=== PATIENT | female | born 1990 | race Caucasian/White ===

== ENCOUNTER → 2017-10-04 | Outpatient (CLI) | payer BC ==
[~2017-10-04] MED LIST: BCPILLS PO; CYAN100074 SC; INSPMPHMLG; PREG1CAP28 PO; ROPI1TAB PO; TOPI100T45 PO
== END | disposition home or self-care (01) ==
LOC: C.PAPS 12:04
PROVIDERS: ATTEND Obstetrics & Gynecology
DX: Z01.419 Encounter for gynecological examination (general) (routine) without abnormal findings (principal)

== ENCOUNTER 2017-10-18 20:18 | Emergency (ER) | payer BC ==
[~2017-10-18] VITALS: Ht 152.4 cm; Wt 64.3 kg
[2017-10-18 20:42] VITALS: TEMP 36.8; Ht 152.4 cm; Wt 64.3 kg
--- NOTE | 2017-10-18 21:17 | EMERGENCY ROOM VISIT NOTE ---
History Report prepared by Arnold: Toribio Toth Under the Supervision of: Dr. Ori Jones M.D. First contact with patient: 21:03 Chief Complaint: ABDOMINAL PAIN Stated Complaint: POSSIBLE APPENDIX PER [facility] History of Present Illness The patient is a 27 year old diabetic female who presents to the Emergency Room with complaints of persistent abdominal pain that started upon waking today. She states that she has not been feeling well for 2 weeks, with bad fatigue and increased frequency of urination. The patient says that she could not get out of bed this morning with bad low back pain that bilaterally wraps around into her abdomen. She notes that she has been very nauseous today, and has not been able to eat due to the nausea. The patient says that she has not vomited. She notes that she went to [employer] prior to arrival today, and had a negative flu and urine. She states that she was sent here for a possible appendix. The patient denies any pain or burning with urination, vaginal bleeding or discharge , leg pain, or blood in her urine. She also denies any recent injuries to her back, or chance of . The patient states that she had DKA years ago when she was diagnosed with diabetes, and gets neuropathy in her feet. She has a history of a cholecystectomy. Source of History: patient, spouse/significant other Onset: Upon waking today Position: abdomen Quality: other (wraps around from back) Timing: other (persistent) Associated Symptoms: + nausea, + back pain, + urinary symptoms (increased frequency, denies burning or painful urination, denies blood), + fatigue, No vomiting Note: Associated symptoms: Denies vaginal bleeding or discharge, or leg pain. Review of Systems See HPI for pertinent positives & negatives. A total of 10 systems reviewed and were otherwise negative. Past Medical & Surgical Medical Problems: (1) Diabetes Surgical Problems: (1) History of cholecystectomy Old medical records were reviewed. Nurse's notes were reviewed and I agree with. Family History FH: factor V Leiden mutation Social History Smoking Status: Never Smoker Marital Status: Housing Status: lives with family Occupation Status: [employer] student Current/Historical Medications Scheduled Control Pills ( Control Pills), 1 TAB PO HS Cyanocobalamin (Vitamin Deficiency Inject), 1,000 MCG SC WK Insulin Human Lispro (Insulin Humalog Pump ), 1 EA N/A UD Pregabalin (Lyrica), 75 MG PO QAM Pregabalin (Lyrica), 150 MG PO HS Ropinirole (Requip), 1 MG PO HS Topiramate (Topamax), 100 MG PO AMHS Allergies Coded Allergies: Albuterol (Verified Allergy, Unknown, SHORTNESS OF BREATH, 10/18/17) Physical Exam Vital Signs Date Time Temp Pulse Resp B/P (MAP) Pulse Ox O2 Delivery O2 Flow Rate FiO2 10/19/17 00:44 81 18 95/67 100 10/18/17 23:18 84 18 107/68 100 Room Air 10/18/17 20:42 36.8 90 20 135/88 100 Room Air Physical Exam General: Non-ill appearing young female in no acute distress. HEENT: Normal cephalic atraumatic. Pupils are equal round and reactive to light. Extraocular movements are intact. Oropharynx is pink with moist mucous membranes. No swelling of the mouth lips or tongue. Neck: Supple with a midline trachea. No meningeal signs or stiffness, no JVD or bruits. No Stridor. Chest: Clear to auscultation bilaterally. No wheezes or rhonchi. No increased work of breathing. Heart: regular rate and rhythm. Abdomen: Mildly tender in central lower abdomen and right flank. Soft, nondistended without rebound guarding or rigidity. Intact insulin pump without redness. Extremities: No cyanosis clubbing or edema. No calf tenderness or assymetry Spine/Back. Non tender to palpation. No CVA tenderness Skin: Good turgor without rashes. Neurologic exam: Cranial nerves two through 12 are intact. Motor and sensation are intact and symmetrical throughout. Medical Decision & Procedures ER Provider Diagnostic Interpretation: CT results as stated below per my review and radiologist interpretation: CT ABDOMEN & PELVIS: Normal appendix. No GI or urinary tract obstruction. Cholecystectomy. Radiologist: Rangel Sánchez MD Laboratory Results 10/18/17 21:40 Red Blood Count 4.70, Mean Corpuscular Volume 87.7, Mean Corpuscular Hemoglobin 30.2, Mean Corpuscular Hemoglobin Concent 34.5, Mean Platelet Volume 10.1, Neutrophils (%) (Auto) 50.6, Lymphocytes (%) (Auto) 40.7, Monocytes (%) (Auto) 6.1, Eosinophils (%) (Auto) 2.1, Basophils (%) (Auto) 0.3, Neutrophils # (Auto) 4.58, Lymphocytes # (Auto) 3.69, Monocytes # (Auto) 0.55, Eosinophils # (Auto) 0.19, Basophils # (Auto) 0.03 10/18/17 21:40 Test 10/18/17 21:40 10/18/17 21:41 10/18/17 21:45 White Blood Count 9.06 K/uL (4.8-10.8) Red Blood Count 4.70 M/uL (4.2-5.4) Hemoglobin 14.2 g/dL (12.0-16.0) Hematocrit 41.2 % (37-47) Mean Corpuscular Volume 87.7 fL (80-100) Mean Corpuscular Hemoglobin 30.2 pg (25-34) Mean Corpuscular Hemoglobin Concent 34.5 g/dl (32-36) Platelet Count 227 K/uL (130-400) Mean Platelet Volume 10.1 fL (7.4-10.4) Neutrophils (%) (Auto) 50.6 % Lymphocytes (%) (Auto) 40.7 % Monocytes (%) (Auto) 6.1 % Eosinophils (%) (Auto) 2.1 % Basophils (%) (Auto) 0.3 % Neutrophils # (Auto) 4.58 K/uL (1.4-6.5) Lymphocytes # (Auto) 3.69 K/uL (1.2-3.4) Monocytes # (Auto) 0.55 K/uL (0.11-0.59) Eosinophils # (Auto) 0.19 K/uL (0-0.5) Basophils # (Auto) 0.03 K/uL (0-0.2) RDW Standard Deviation 41.7 fL (36.4-46.3) RDW Coefficient of Variation 12.9 % (11.5-14.5) Immature Granulocyte % (Auto) 0.2 % Immature Granulocyte # (Auto) 0.02 K/uL (0.00-0.02) Anion Gap 7.0 mmol/L (3-11) Est Creatinine Clear Calc Drug Dose 86.0 ml/min Estimated GFR () 112.8 Estimated GFR (Non- 97.3 BUN/Creatinine Ratio 10.6 (10-20) Calcium Level 8.6 mg/dl (8.5-10.1) Total Bilirubin 0.4 mg/dl (0.2-1) Direct Bilirubin < 0.1 mg/dl (0-0.2) Aspartate Amino Transf (AST/SGOT) 15 U/L (15-37) Alanine Aminotransferase (ALT/SGPT) 31 U/L (12-78) Alkaline Phosphatase 38 U/L (45-117) Total Creatine Kinase 61 U/L (26-192) Creatine Kinase MB < 0.5 ng/ml (0.5-3.6) Creatine Kinase MB Ratio (0-3.0) Total Protein 7.1 gm/dl (6.4-8.2) Albumin 3.6 gm/dl (3.4-5.0) Lipase 99 U/L (73-393) Bedside Glucose 139 mg/dl (70-90) Urine Color YELLOW Urine Appearance CLEAR (CLEAR) Urine pH 5.5 (4.5-7.5) Urine Specific [place] 1.023 (1.000-1.030) Urine Protein NEG (NEG) Urine Glucose (UA) NEG (NEG) Urine Ketones NEG (NEG) Urine Occult Blood NEG (NEG) Urine Nitrite NEG (NEG) Urine Bilirubin NEG (NEG) Urine Urobilinogen NEG (NEG) Urine Leukocyte Esterase TRACE (NEG) Urine WBC (Auto) 5-10 /hpf (0-5) Urine RBC (Auto) 5-10 /hpf (0-4) Urine Hyaline Casts (Auto) 1-5 /lpf (0-5) Urine Epithelial Cells (Auto) >30 /lpf (0-5) Urine Bacteria (Auto) NEG (NEG) Laboratory studies as stated above per my review. Medications Administered Medications (Trade) Dose Ordered Sig/Noam Route Start Time Stop Time Status Last Admin Dose Admin Sodium Chloride 1,000 ml @ 999 mls/hr Q1H1M STAT IV 10/18/17 21:20 10/18/17 22:20 DC 10/18/17 21:45 999 MLS/HR Ondansetron HCl (Zofran Inj) 4 mg NOW STAT IV 10/18/17 21:20 10/18/17 21:23 DC 10/18/17 21:45 4 MG Ketorolac Tromethamine (Toradol Inj) 30 mg NOW STAT IV 10/18/17 21:20 10/18/17 21:23 DC 10/18/17 21:46 30 MG ED Course 2108: Past medical records reviewed. The patient was evaluated in room C10, and a complete history and physical examination were performed. 2119: Ordered Toradol Inj 30 mg IV, Zofran Inj 4 mg IV, NSS 1000 ml @ 150 mls/ hr IV, NSS 1000 ml @ 999 mls/hr IV. 2316: I reevaluated the patient and she just got back from CT. 0030: Upon reevaluation, the patient is resting. I discussed the results and treatment plan with her. She verbalized agreement of the treatment plan. The patient was discharged home. Medical Decision Differentials include appendicitis, colitis, pancreatitis, liver disease, electrolyte or metabolic abnormality, diabetic emergency. This patient comes in as described above. She is a type I diabetic. She was seen at [facility] and sent to ER for possible appendicitis. She's had some lower abdominal pain more centrally and also some right-sided back pain . She has had some constipation. She has baseline neuropathy in her legs but no new numbness or weakness and no incontinence. No numbness in her buttocks. She has had no fever or chills and has a normal white count here. IV access established and blood work was obtained. She's had no significant anemic. Her urine was negative. Urinalysis does not suggest UTI with a backup culture pending. She's had no acute electrolyte or metabolic abnormalities. Her blood sugar was in the 150s and she's had nothing to suggest DKA. CAT scan of her abdomen is unremarkable and she has no acute findings. At this point, I cannot give her definite etiology for her symptoms but there is nothing to suggest acute infectious or surgical process at this point and I recommended she use ibuprofen for pain. She says that she has been constipated and this may be playing a role here as well. She did check her blood sugar frequently and return if: increasing pain, worsening of symptoms, fever or chills, any new problems or concerns. She was happy with plan and discharged to home. Medication Reconcilliation Current Medication List: was personally reviewed by me Blood Pressure Screening Patient's blood pressure: Normal blood pressure Impression Primary Impression: Right flank pain Additional Impression: Lower abdominal pain Scribe Attestation The scribe's documentation has been prepared under my direction and personally reviewed by me in its entirety. I confirm that the note above accurately reflects all work, treatment, procedures, and medical decision making performed by me. Departure Information Dispostion Home / Self-Care Referrals Saravanan Acevedo DO (PCP) Patient Instructions My [facility] Additional Instructions Rest Return if: Worsening of symptoms, increasing pain or problems, fever or chills, any new problems or concerns Follow-up with your doctor on Saturday for recheck Problem Qualifiers
[2017-10-18] MEDS ORDERED: ONDANSETRON INJ 2 MG/ML 2 ML VIAL IV STA (21:20)
[2017-10-18] MEDS ORDERED: KETOROLAC TROMETHAMINE 30 MG/ML VIAL IV STA (21:20)
[2017-10-18] MEDS ORDERED: SODIUM CHLORIDE 0.9% 1000ML 1,000 ML IV STA (21:20)
[2017-10-18] MEDS ORDERED: SODIUM CHLORIDE 0.9% 1000ML 1,000 ML IV ONE (21:20)
[2017-10-18] MEDS ORDERED: TOPI100T45 PO (21:53)
[2017-10-18] MEDS ORDERED: PREG1CAP28 PO ×2 (21:53)
[2017-10-18] MEDS ORDERED: INSPMPHMLG (21:53)
[2017-10-18] MEDS ORDERED: CYAN100074 SC (21:53)
[2017-10-18] MEDS ORDERED: ROPI1TAB PO (21:55)
[2017-10-18] MEDS ORDERED: BCPILLS PO (21:55)
[2017-10-18 22:00] LABS: BASO % 0.3 %; BASO ABS # 0.03 K/uL (0-0.2); COMPLETE YES; EOS % 2.1 %; HEMATOCRIT 41.2 % (37-47); IG% 0.2 %; LYMPH % 40.7 %; LYMPH ABS # 3.69 K/uL (1.2-3.4); MEAN CELL VOLUME 87.7 fL (80-100); MEAN CORPUSCULAR HEMOGLOBIN 30.2 pg (25-34); MEAN CORPUSCULAR HGB CONC 34.5 g/dl (32-36); MEAN PLATELET VOLUME 10.1 fL (7.4-10.4); MONO % 6.1 %; NEUT % 50.6 %; PLATELET COUNT 227 K/uL (130-400); WHITE BLOOD COUNT 9.06 K/uL (4.8-10.8)
[2017-10-18 22:05] LABS: URINE APPEARANCE CLEAR (CLEAR); URINE BILIRUBIN NEG (NEG); URINE COLOR YELLOW; URINE EPITHELIAL CELL AUTO >30 /lpf (0-5); URINE NITRITE NEG (NEG); URINE PH 5.5 (4.5-7.5); URINE SPECIFIC GRAVITY 1.023 (1.000-1.030); UROBILINOGEN NEG (NEG)
[2017-10-18 22:06] LABS: MANUAL MICROSCOPIC REQUIRED? NO; REVIEW REQ? NO
[2017-10-18 22:20] LABS: ALT/SGPT 31 U/L (12-78); BLOOD UREA NITROGEN 9 mg/dl (7-18); BUN/CREATININE RATIO 10.6 (10-20); CALCIUM 8.6 mg/dl (8.5-10.1); CARBON DIOXIDE 23 mmol/L (21-32); CHLORIDE 111 mmol/L (98-107); CREATININE 0.83 mg/dl (0.60-1.20); GLUCOSE 152 mg/dl (70-99); POTASSIUM 3.5 mmol/L (3.5-5.1); SODIUM 141 mmol/L (136-145)
[2017-10-18 22:25] LABS: ALKALINE PHOSPHATASE 38 U/L (45-117); AST/SGOT 15 U/L (15-37)
[2017-10-18] MEDS ORDERED: OPTIRAY 320 IV PRN (22:30)
[2017-10-19 00:44] VITALS: BP 95/67; PULSE 81; O2SAT 100
--- NOTE | 2017-10-19 07:34 | DIAGNOSTIC IMAGING REPORT ---
CT OF THE ABDOMEN AND PELVIS WITH CONTRAST CLINICAL HISTORY: Lower abdominal pain. Evaluate for acute appendicitis. COMPARISON STUDY: None. TECHNIQUE: Following IV administration of 94 mL of Optiray-320, axial images of the abdomen and pelvis were obtained from the lung bases to the proximal femurs. Images were reviewed in the axial, sagittal, and coronal planes. IV contrast was administered without complication. A dose lowering technique was utilized adhering to the principles of ALARA. CT DOSE: 275.59 mGy.cm FINDINGS: Fatty infiltration along the falciform ligament is noted. There is no biliary ductal dilatation status post cholecystectomy. The spleen, adrenal glands and kidneys are normal. There is no hydronephrosis. Caliber and wall thickness of small and large bowel are normal. The appendix is normal. There is no ascites or lymphadenopathy. There are no suspicious osseous lesions. There is no free fluid. IMPRESSION: No acute process within the abdomen or pelvis. Normal appendix. Electronically signed by: Addi Mcrae M.D. 10/19/2017 7:33 AM Dictated Date/Time: 10/19/2017 7:28 AM
== END 2017-10-19 00:44 | disposition home or self-care (01) ==
LOC: C.EDB 20:19 → C.EDC 10-19 00:44
DX: R10.30 Lower abdominal pain, unspecified (principal); E11.9 Type 2 diabetes mellitus without complications; Z90.49 Acquired absence of other specified parts of digestive tract; Z79.4 Long term (current) use of insulin; Z79.899 Other long term (current) drug therapy; Z88.8 Allergy status to other drugs, medicaments and biological substances

== ENCOUNTER 2018-01-22 15:05 | Emergency (ER) | payer BC ==
[~2018-01-22] VITALS: Ht 154.9 cm; Wt 64.1 kg
[~2018-01-22 15:05] MED LIST changes: -BCPILLS PO; -INSPMPHMLG; -PREG1CAP28 PO; -ROPI1TAB PO; -TOPI100T45 PO
[2018-01-22 15:11] VITALS: TEMP 37; Ht 154.9 cm; Wt 64.1 kg
[2018-01-22 15:26] VITALS: O2SAT 100
[2018-01-22] MEDS ORDERED: RANITIDINE HCL 50 MG/100 ML D5W IV STA (15:31)
[2018-01-22] MEDS ORDERED: SODIUM CHLORIDE 0.9% 1000ML 1,000 ML IV STA (15:31)
[2018-01-22] MEDS ORDERED: DiphenhydrAMINE HCL 50 MG/ML VIAL IV STA (15:31)
--- NOTE | 2018-01-22 15:58 | DIAGNOSTIC IMAGING REPORT ---
CHEST ONE VIEW PORTABLE CLINICAL HISTORY: Shortness of breath. Allergic reaction. COMPARISON STUDY: No previous studies for comparison. FINDINGS: Lung volumes are normal. Lungs are clear. No pneumothorax or pleural effusion is noted. Cardiac size is normal. Mediastinal contours are normal. There is no evidence of pulmonary edema. Incidental note is made of cholecystectomy clips. IMPRESSION: No acute cardiopulmonary findings. Electronically signed by: Addi Mcrae M.D. 01/22/2018 3:57 PM Dictated Date/Time: 01/22/2018 3:56 PM
[2018-01-22] MEDS ORDERED: FAMOTIDINE IV ONE (16:00)
[2018-01-22 16:18] LABS: CALCIUM 8.8 mg/dl (8.5-10.1); CREATININE 0.79 mg/dl (0.60-1.20); HEMATOCRIT 39.3 % (37-47); HEMOGLOBIN 13.7 g/dL (12.0-16.0); MEAN CORPUSCULAR HGB CONC 34.9 g/dl (32-36); MEAN PLATELET VOLUME 10.4 fL (7.4-10.4); PLATELET COUNT 243 K/uL (130-400); POTASSIUM 3.5 mmol/L (3.5-5.1); RED CELL DISTRIBUTION WIDTH CV 12.2 % (11.5-14.5); WHITE BLOOD COUNT 15.35 K/uL (4.8-10.8)
[2018-01-22] MEDS ORDERED: CYNI1000 IM (16:26)
[2018-01-22] MEDS ORDERED: PYRI100T4 PO (16:26)
[2018-01-22] MEDS ORDERED: RANI150T85 PO (16:57)
[2018-01-22] MEDS ORDERED: EPINEPHRINE ADULT AUTO-INJECT 0.3 MG SYR IM STA (16:58)
[2018-01-22] MEDS ORDERED: EPP3/2 IM (16:59)
--- NOTE | 2018-01-22 17:39 | EMERGENCY ROOM VISIT NOTE ---
History Report prepared by Arnold: Chinedu Guadarrama Under the Supervision of: Dr. Homer Whatley M.D. First contact with patient: 15:25 Chief Complaint: ALLERGIC REACTION Stated Complaint: allergic reaction Nursing Triage Summary: Patient seen at [place] ED yesterday for allergic reaction. Sent home on PO prednisone. Patient went for follow up today at PCP in [place] and PCP was concerned about patient still having symptoms and about patient's blood sugars being high from the Prednisone. Patient a Type 1 Diabetic. Patient still feeling short of breath and feels like her throat is scratchy, Itchy swollen eyes with some vision changes. Patient unsure what she was exposed to yesterday to cause allergic reaction. History of Present Illness The patient is a 27 year old female who presents to the Emergency Room with complaints of an improving allergic reaction beginning yesterday. Her symptoms include eye swelling, throat "scratchiness" and shortness of breath. The patient was seen at the [place] ED yesterday for her symptoms. She was given 80 mg PO Prednisone as well as Pepcid which improved her symptoms. She was given a prescription for steroids. The patient is type I diabetic. Her blood sugar was found to be 600 today. Her blood sugar was normal prior to taking the steroids yesterday. The patient was seen by her PCP today for follow-up, and was referred to the ED due to her blood sugar being so high. She states that she continues to experience some of the symptoms of the allergic reaction. She denies rashes. The patient took Benadryl this morning. She denies any known exposure to new things (foods, hygienic products). She notes that she increased her basal insulin rate by a little over 50% today, and has not had anything to eat today. The patient notes that she feels thirsty. Source of History: patient Onset: Yesterday Quality: other (allergic reaction) Timing: other (improving) Modifying Factors (Relieving): other (Prednisone and Pepcid) Associated Symptoms: + SOB, No rash Note: Her symptoms include eye swelling, and throat "scratchiness". Review of Systems See HPI for pertinent positives & negatives. A total of 10 systems reviewed and were otherwise negative. Past Medical & Surgical Medical Problems: (1) Diabetes Surgical Problems: (1) History of cholecystectomy Family History FH: factor V Leiden mutation Social History Smoking Status: Never Smoker Marital Status: Housing Status: lives with family Occupation Status: [employer] student Current/Historical Medications Scheduled Control Pills ( Control Pills), 1 TAB PO HS Cyanocobalamin (Cyanocobalamin), 1,000 MCG IM MONTHLY Epinephrine (Epipen 2-Vimal), 1 APPLN IM DIRECTED Insulin Human Lispro (Insulin Humalog Pump ), 1 EA N/A UD Pregabalin (Lyrica), 75 MG PO QAM Pregabalin (Lyrica), 150 MG PO HS Pyridoxine (Vitamin B6), 100 MG PO BID Ranitidine (Zantac), 150 MG PO BID Ropinirole (Requip), 1 MG PO HS Topiramate (Topamax), 100 MG PO AMHS Allergies Coded Allergies: Albuterol (Verified Allergy, Severe, ANAPHYLAXIS, throat closed, 01/22/18) Reaction to tablets Physical Exam Vital Signs Date Time Temp Pulse Resp B/P (MAP) Pulse Ox O2 Delivery O2 Flow Rate FiO2 01/22/18 17:44 95 117/77 100 01/22/18 16:36 88 22 117/81 100 Room Air 01/22/18 15:31 88 01/22/18 15:26 100 Room Air 01/22/18 15:20 Room Air 100 01/22/18 15:11 37.0 96 18 108/73 99 Room Air Physical Exam GENERAL: Patient is in no acute distress. HEENT: No acute trauma, normocephalic atraumatic, mucous membranes moist, no nasal congestion, no scleral icterus. Mild edema to the area around both eyes. No uvular edema. NECK: No stridor, no adenopathy, no meningismus, trachea is midline. LUNGS: Clear to auscultation bilaterally, no wheeze, no rhonchi, breath sounds equal. HEART: Without murmurs gallops or rubs, regular rate and rhythm. ABDOMEN: Soft, nontender, bowel sounds positive, no hernias, no peritonitis. EXTREMITIES: No cyanosis or edema, full range of motion of all the joints without pain or difficulty, no signs for acute trauma. NEUROLOGIC: Oriented x 3, no acute motor or sensory deficits, no focal weakness. SKIN: No rash, no jaundice, no diaphoresis. Medical Decision & Procedures ER Provider Diagnostic Interpretation: Radiology results as stated below per my review and radiologist interpretation: CHEST ONE VIEW PORTABLE FINDINGS: Lung volumes are normal. Lungs are clear. No pneumothorax or pleural effusion is noted. Cardiac size is normal. Mediastinal contours are normal. There is no evidence of pulmonary edema. Incidental note is made of cholecystectomy clips. IMPRESSION: No acute cardiopulmonary findings. Electronically signed by: Addi Mcrae M.D. 01/22/2018 3:57 PM Laboratory Results 01/22/18 15:50 01/22/18 15:50 Test 01/22/18 15:38 01/22/18 15:50 Bedside Glucose 128 mg/dl (70-90) Red Blood Count 4.57 M/uL (4.2-5.4) Mean Corpuscular Volume 86.0 fL (80-100) Mean Corpuscular Hemoglobin 30.0 pg (25-34) Mean Corpuscular Hemoglobin Concent 34.9 g/dl (32-36) RDW Standard Deviation 38.0 fL (36.4-46.3) RDW Coefficient of Variation 12.2 % (11.5-14.5) Mean Platelet Volume 10.4 fL (7.4-10.4) Anion Gap 8.0 mmol/L (3-11) Est Creatinine Clear Calc Drug Dose 92.5 ml/min Estimated GFR () 119.7 Estimated GFR (Non- 103.3 BUN/Creatinine Ratio 16.6 (10-20) Calcium Level 8.8 mg/dl (8.5-10.1) Laboratory results reviewed by me. Medications Administered Medications (Trade) Dose Ordered Sig/Noam Route Start Time Stop Time Status Last Admin Dose Admin Sodium Chloride 1,000 ml @ 999 mls/hr Q1H1M STAT IV 01/22/18 15:31 01/22/18 16:32 DC 01/22/18 15:56 999 MLS/HR Diphenhydramine HCl (Benadryl Inj) 25 mg NOW STAT IV 01/22/18 15:31 01/22/18 15:34 DC 01/22/18 15:57 25 MG Famotidine 40 mg/ Syringe 10 ml @ 2.5 mls/min ONE ONCE IV 01/22/18 16:00 01/22/18 16:03 DC 01/22/18 16:08 2.5 MLS/MIN Epinephrine (Epipen) 0.3 mg NOW STAT IM 01/22/18 16:58 2/28/18 16:59 DC 01/22/18 17:15 0.3 MG ED Course 1526: The patient was evaluated in room B7. A complete history and physical exam was performed. 1531: Ordered Benadryl Inj 25 mg IV, Sodium Chloride 1000 ml @ 999 mls/hr IV. 1600: Ordered Famotidine 40 mg/Syringe 10 mL @ 2.5 mL/min IV. 1650: Reevaluated the patient. Discussed results and discharge instructions: she verbalized understanding and agreement. The patient is ready for discharge. 1657: Ordered EpiPen 0.3 mg IM. Medical Decision The patient is a 27 year old female who presents to the ED with complaints of allergic reaction. Differential diagnoses considered include environmental allergy, food allergy, acute allergic reaction, uvular edema, hives, medication reaction, hyperglycemia and dehydration. There is a moderate leukocytosis, this is likely consistent with the steroids given yesterday. No concerning anemia. No significant electrolyte abnormality or kidney failure-blood sugar was around 120. Chest film does not show pneumonia or pneumothorax. On exam, her lungs were clear. There were no hives , no uvular edema, no hypoxia. The patient did receive IV Benadryl and IV famotidine, she received IV saline for hydration. The patient is resting comfortably. I do think she can be discharged. Her sugar is controlled and there is no sign of DKA. She will avoid any future steroid use. She will be on Benadryl and Zantac for the next few days to help with this allergic reaction. She was given an EpiPen upon discharge to have and use if required. Medication Reconcilliation Current Medication List: was personally reviewed by me Blood Pressure Screening Patient's blood pressure: Normal blood pressure Blood pressure disposition: Did not require urgent referral Impression Primary Impression: Allergic reaction Additional Impression: Hyperglycemia Scribe Attestation The scribe's documentation has been prepared under my direction and personally reviewed by me in its entirety. I confirm that the note above accurately reflects all work, treatment, procedures, and medical decision making performed by me. Departure Information Dispostion Home / Self-Care Prescriptions Epinephrine (EPIPEN 2-VIMAL) 0.3 Mg Inj 1 APPLN IM DIRECTED, #1 APPL 2 Refills Prov: Homer Whatley M.D. 01/22/18 Ranitidine (Zantac) 150 Mg Tab 150 MG PO BID for 4 Days, #8 TAB Prov: Homer Whatley M.D. 01/22/18 Referrals Saravanan Acevedo DO (PCP) Forms HOME CARE DOCUMENTATION FORM, IMPORTANT VISIT INFORMATION Patient Instructions My [facility] Additional Instructions no prednisone keep epipen with you at all times and use for airway closing sensation use benadryl 1-2 tab 3x per day for the next 4 days use zantac 2x per day for the next 4 days return if worsening keep a watch on your blood sugar and adjust insulin as needed Problem Qualifiers
[2018-01-22 17:44] VITALS: BP 117/77; PULSE 95; O2SAT 100
[2018-01-22] MEDS ORDERED: TOPI100T45 PO (21:53)
[2018-01-22] MEDS ORDERED: INSPMPHMLG (21:53)
[2018-01-22] MEDS ORDERED: PREG1CAP28 PO ×2 (21:53)
[2018-01-22] MEDS ORDERED: ROPI1TAB PO (21:55)
[2018-01-22] MEDS ORDERED: BCPILLS PO (21:55)
== END 2018-01-22 17:45 | disposition home or self-care (01) ==
LOC: C.EDB 15:06
DX: T78.40XA Allergy, unspecified, initial encounter (principal); X58.XXXA Exposure to other specified factors, initial encounter; E10.65 Type 1 diabetes mellitus with hyperglycemia; Z79.3 Long term (current) use of hormonal contraceptives; Z79.899 Other long term (current) drug therapy; Z88.8 Allergy status to other drugs, medicaments and biological substances

== ENCOUNTER 2018-02-06 10:46 | Emergency (ER) | payer BC ==
[~2018-02-06] VITALS: Ht 154.9 cm; Wt 62.8 kg
[~2018-02-06 10:46] MED LIST changes: +BCPILLS PO; -CYAN100074 SC; +CYNI1000 IM; +EPP3/2 IM; +INSPMPHMLG; +PREG1CAP28 PO; +PYRI100T4 PO; +ROPI1TAB PO; +TOPI100T45 PO
[2018-02-06 10:50] VITALS: TEMP 37.2; Ht 154.9 cm; Wt 62.8 kg
[2018-02-06] MEDS ORDERED: METHYLPREDNISOLONE 125 MG VIAL IV STA (11:02)
[2018-02-06] MEDS ORDERED: IBUP-1050 PO (11:21)
[2018-02-06 11:40] LABS: BASO % 0.2 %; BASO ABS # 0.03 K/uL (0-0.2); EOS % 0.8 %; EOS ABS # 0.11 K/uL (0-0.5); HEMATOCRIT 37.8 % (37-47); IG# 0.07 K/uL (0.00-0.02); LYMPH % 14.1 %; LYMPH ABS # 1.88 K/uL (1.2-3.4); MEAN CELL VOLUME 85.3 fL (80-100); MEAN CORPUSCULAR HEMOGLOBIN 29.3 pg (25-34); MEAN CORPUSCULAR HGB CONC 34.4 g/dl (32-36); MEAN PLATELET VOLUME 9.5 fL (7.4-10.4); MONO % 8.1 %; MONO ABS # 1.09 K/uL (0.11-0.59); NEUT % 76.3 %; PLATELET COUNT 257 K/uL (130-400); RED CELL DISTRIBUTION WIDTH CV 12.5 % (11.5-14.5); RED CELL DISTRIBUTION WIDTH SD 39.1 fL (36.4-46.3); WHITE BLOOD COUNT 13.38 K/uL (4.8-10.8)
[2018-02-06 11:58] LABS: INFLUENZA B ANTIGEN Neg for Influ B (NEG)
[2018-02-06 12:00] LABS: CALCIUM 8.9 mg/dl (8.5-10.1); CREATININE 0.69 mg/dl (0.60-1.20); POTASSIUM 3.4 mmol/L (3.5-5.1)
--- NOTE | 2018-02-06 12:05 | DIAGNOSTIC IMAGING REPORT ---
CHEST 2 VIEWS ROUTINE CLINICAL HISTORY: Cough, chest tightness dyspnea COMPARISON STUDY: 01/22/2018 FINDINGS: The bones soft tissues and hemidiaphragms are normal. The cardiomediastinal silhouette is normal. The lungs are clear. The pulmonary vasculature is normal. IMPRESSION: Negative chest. The above report was generated using voice recognition software. It may contain grammatical, syntax or spelling errors. Electronically signed by: Neil Bentley M.D. 02/06/2018 12:04 PM Dictated Date/Time: 02/06/2018 12:04 PM
[2018-02-06] MEDS ORDERED: OPTIRAY 320 IV PRN (12:15)
[2018-02-06 12:25] VITALS: BP 97/52; PULSE 93; O2SAT 98
--- NOTE | 2018-02-06 12:38 | DIAGNOSTIC IMAGING REPORT ---
CT ANGIOGRAPHY OF THE CHEST, PULMONARY EMBOLUS PROTOCOL CLINICAL HISTORY: Chest tightness. Cough. COMPARISON STUDY: Chest radiograph February 06, 2018 and January 22, 2018. TECHNIQUE: Following IV administration of 94 mL of Optiray-320, helical axial images of the chest were obtained utilizing the pulmonary embolus protocol. Maximal intensity projections and sagittal and coronal reformats were viewed on an independent 3D workstation. IV contrast was administered without complication. A dose lowering technique was utilized adhering to the principles of ALARA. CT DOSE: 191.26 mGy.cm FINDINGS: No pulmonary emboli are identified. There is no evidence for thoracic aortic dissection. The size of the heart is normal. There is no pericardial effusion. No enlarged thoracic lymph nodes are present. Mild airspace opacities are noted within the lingula. There is no cavitation. No pneumothorax or pleural effusion is noted. Bony thorax and upper abdomen are unremarkable. IMPRESSION: 1. No pulmonary emboli identified. 2. Minimal lingular airspace opacity which suggests a mild infectious process. Electronically signed by: Addi Mcrae M.D. 02/06/2018 12:37 PM Dictated Date/Time: 02/06/2018 12:31 PM
[2018-02-06] MEDS ORDERED: HYDR5SYP11 PO (12:50)
[2018-02-06] MEDS ORDERED: AZITTAB PO (12:50)
--- NOTE | 2018-02-06 12:51 | EMERGENCY ROOM VISIT NOTE ---
History First contact with patient: 10:56 Chief Complaint: COUGH Stated Complaint: COUGH, CHEST DISCOMFORT History of Present Illness The patient is a 27 year old female who presents to the Emergency Room with complaints of head congestion, cough, chest tightness and fever. The patient states that her symptoms started on Saturday. She went to [facility] on Saturday. They diagnosed her with influenza. They did not do any testing except for strep which was negative. They placed her on Tamiflu. The patient states she stopped the Tamiflu because it made her nauseated. The patient states that her temperature was much higher but now it has come down to around 100. She still complains of some head congestion and increased cough and chest tightness. The patient denies tobacco use. The patient denies any recent travel or recent surgeries. The patient is on control. She denies any prior PEs or DVTs. Review of Systems 10 system review was performed and was negative unless stated otherwise history of present illness. Past Medical/Surgical History Medical Problems: (1) Diabetes Surgical Problems: (1) History of cholecystectomy Family History FH: factor V Leiden mutation Social History Smoking Status: Never Smoker Marital Status: Housing Status: lives with family Occupation Status: [employer] student Current/Historical Medications Scheduled Control Pills ( Control Pills), 1 TAB PO HS Cyanocobalamin (Cyanocobalamin), 1,000 MCG IM MONTHLY Epinephrine (Epipen 2-Vimal), 1 APPLN IM DIRECTED Ibuprofen (Advil), 200 MG PO UD Insulin Human Lispro (Insulin Humalog Pump ), 1 EA N/A UD Pregabalin (Lyrica), 75 MG PO QAM Pregabalin (Lyrica), 150 MG PO HS Pyridoxine (Vitamin B6), 100 MG PO BID Ropinirole (Requip), 1 MG PO HS Topiramate (Topamax), 100 MG PO AMHS Physical Exam Vital Signs Date Time Temp Pulse Resp B/P (MAP) Pulse Ox O2 Delivery O2 Flow Rate FiO2 02/06/18 12:25 93 16 97/52 98 Room Air 02/06/18 10:50 37.2 107 18 108/72 98 Room Air Physical Exam PHYSICAL EXAM: Vital Signs were reviewed: Temperature 37.2, blood pressure 118/ 72, pulse 107, respiratory rate 18 reviewed Nurse's notes and agree. Oxygen saturation is 98 % on room air which is normal . GENERAL: 27-year-old female appears in no acute distress. MENTAL STATUS: Alert, oriented, coherent. EARS: Canals clear. TMs good light reflex, no erythema or fluid level noted. NOSE: Nasal mucosa with moderate erythema engorgement. PHARYNX no erythema, no edema noted. No exudate noted. Airway is adequate. NECK: Supple, non-tender. No lymphadenopathy noted. LUNGS: Clear to auscultation without wheezes rales or rhonchi. CARDIAC: Regular rate and rhythm without murmur. SKIN: No rashes noted. LOWER EXTREMITIES: Calves nontender to palpation. No erythema or edema noted. Medical Decision & Procedures ER Provider Diagnostic Interpretation: CT ANGIOGRAPHY OF THE CHEST, PULMONARY EMBOLUS PROTOCOL CLINICAL HISTORY: Chest tightness. Cough. COMPARISON STUDY: Chest radiograph February 06, 2018 and January 22, 2018. TECHNIQUE: Following IV administration of 94 mL of Optiray-320, helical axial images of the chest were obtained utilizing the pulmonary embolus protocol. Maximal intensity projections and sagittal and coronal reformats were viewed on an independent 3D workstation. IV contrast was administered without complication. A dose lowering technique was utilized adhering to the principles of ALARA. CT DOSE: 191.26 mGy.cm FINDINGS: No pulmonary emboli are identified. There is no evidence for thoracic aortic dissection. The size of the heart is normal. There is no pericardial effusion. No enlarged thoracic lymph nodes are present. Mild airspace opacities are noted within the lingula. There is no cavitation. No pneumothorax or pleural effusion is noted. Bony thorax and upper abdomen are unremarkable. IMPRESSION: 1. No pulmonary emboli identified. 2. Minimal lingular airspace opacity which suggests a mild infectious process. Electronically signed by: Addi Mcrae M.D. 02/06/2018 12:37 PM CHEST 2 VIEWS ROUTINE CLINICAL HISTORY: Cough, chest tightness dyspnea COMPARISON STUDY: 01/22/2018 FINDINGS: The bones soft tissues and hemidiaphragms are normal. The cardiomediastinal silhouette is normal. The lungs are clear. The pulmonary vasculature is normal. IMPRESSION: Negative chest. The above report was generated using voice recognition software. It may contain grammatical, syntax or spelling errors. Electronically signed by: Neil Bentley M.D. 02/06/2018 12:04 PM Laboratory Results 02/06/18 11:27 Red Blood Count 4.43, Mean Corpuscular Volume 85.3, Mean Corpuscular Hemoglobin 29.3, Mean Corpuscular Hemoglobin Concent 34.4, Mean Platelet Volume 9.5, Neutrophils (%) (Auto) 76.3, Lymphocytes (%) (Auto) 14.1, Monocytes (%) (Auto) 8.1, Eosinophils (%) (Auto) 0.8, Basophils (%) (Auto) 0.2, Neutrophils # (Auto) 10.20, Lymphocytes # (Auto) 1.88, Monocytes # (Auto) 1.09, Eosinophils # (Auto) 0.11, Basophils # (Auto) 0.03 02/06/18 11:27 Test 02/06/18 11:23 02/06/18 11:27 02/06/18 11:32 Influenza Type A Antigen Neg for Influ A (NEG) Influenza Type B Antigen Neg for Influ B (NEG) White Blood Count 13.38 K/uL (4.8-10.8) Red Blood Count 4.43 M/uL (4.2-5.4) Hemoglobin 13.0 g/dL (12.0-16.0) Hematocrit 37.8 % (37-47) Mean Corpuscular Volume 85.3 fL (80-100) Mean Corpuscular Hemoglobin 29.3 pg (25-34) Mean Corpuscular Hemoglobin Concent 34.4 g/dl (32-36) Platelet Count 257 K/uL (130-400) Mean Platelet Volume 9.5 fL (7.4-10.4) Neutrophils (%) (Auto) 76.3 % Lymphocytes (%) (Auto) 14.1 % Monocytes (%) (Auto) 8.1 % Eosinophils (%) (Auto) 0.8 % Basophils (%) (Auto) 0.2 % Neutrophils # (Auto) 10.20 K/uL (1.4-6.5) Lymphocytes # (Auto) 1.88 K/uL (1.2-3.4) Monocytes # (Auto) 1.09 K/uL (0.11-0.59) Eosinophils # (Auto) 0.11 K/uL (0-0.5) Basophils # (Auto) 0.03 K/uL (0-0.2) RDW Standard Deviation 39.1 fL (36.4-46.3) RDW Coefficient of Variation 12.5 % (11.5-14.5) Immature Granulocyte % (Auto) 0.5 % Immature Granulocyte # (Auto) 0.07 K/uL (0.00-0.02) Anion Gap 8.0 mmol/L (3-11) Est Creatinine Clear Calc Drug Dose 104.9 ml/min Estimated GFR () 139.2 Estimated GFR (Non- 120.1 BUN/Creatinine Ratio 14.7 (10-20) Calcium Level 8.9 mg/dl (8.5-10.1) Bedside D-Dimer > 450 ng/mlFEU (0-450) Medications Administered Medications (Trade) Dose Ordered Sig/Noam Route Start Time Stop Time Status Last Admin Dose Admin Methylprednisolone Sodium Succinate (Solu-Medrol IV) 125 mg NOW STAT IV 02/06/18 11:02 02/06/18 11:05 DC 02/06/18 11:27 125 MG ED Course The patient was evaluated. Patient's EMR medication list were reviewed. IV access was obtained. CBC and differential, renal profile, [id number]-[id number] d- dimer was ordered. Rapid influenza was negative for influenza A and influenza B.. Chest x-ray was ordered and revealed no acute process by radiologist and my review.. The patient was given Solu-Medrol 125 mg IV. The patient did not receive a nebulized treatment since she has an allergy to albuterol. Labs are reviewed. The patient's white count was elevated at 13,000. Renal profile was unremarkable. The patient's d-dimer was greater than 450. A CT for PE was ordered. CT revealed no evidence of PE but there was some increased densities within the lingula suggests suggestive of an infectious process. I informed the patient of all findings. The patient will be treated with Zithromax. I also stated that I will give her Hycodan syrup for at night for her cough. The patient was in agreement with treatment plan. The patient was discharged home in stable condition. Medical Decision Differential diagnosis include influenza, pneumonia, bronchitis, URI, PE [place] Drug Monitoring Program Search Results: patient reviewed within database Medication Reconcilliation Current Medication List: was personally reviewed by me Blood Pressure Screening Patient's blood pressure: Normal blood pressure Impression Primary Impression: Upper respiratory infection Additional Impression: Cough Departure Information Dispostion Home / Self-Care Condition GOOD Prescriptions Hydrocodone W/ Homatropine (HYCODAN 5/1.5MG 5 ML) 1 Syp Syp 5-10 ML PO Q4H Y for Cough, #200 ML Prov: Naa Bentley PA-C 02/06/18 Azithromycin (ZITHROMAX Z-VIMAL) 250 Mg Tab 1 PKT PO UD for 5 Days, #1 PKT Prov: Naa Bentley PA-C 02/06/18 Referrals Saravanan Acevedo DO (PCP) Forms HOME CARE DOCUMENTATION FORM, IMPORTANT VISIT INFORMATION Patient Instructions My [facility] Additional Instructions Continue [id number] symptomatic treatment. May take Delsym or Robitussin throughout the day. Take Hycodan at night for cough. Take Z-Vimal as prescribed. Push fluids, rest. If symptoms persist or worsen, follow-up with family doctor or return to ER. Problem Qualifiers Primary Impression: Upper respiratory infection URI type: unspecified URI Qualified Codes: J06.9 - Acute upper respiratory infection, unspecified
== END 2018-02-06 13:00 | disposition home or self-care (01) ==
LOC: C.EDB 10:48 → C.EDD 13:00
DX: J06.9 Acute upper respiratory infection, unspecified (principal); R05 Cough; E11.9 Type 2 diabetes mellitus without complications

== ENCOUNTER → 2018-07-02 | Outpatient (CLI) | payer BC ==
[~2018-07-02] MED LIST changes: +CLIN300C2 PO; +IBUP-1050 PO; +METH1TAB81 PO; +OXYC-737 PO
[2018-07-03 05:51] LABS: HEMOGLOBIN A1C 6.8 % (4.5-5.6)
== END | disposition home or self-care (01) ==
LOC: C.LAB1850 13:57
PROVIDERS: ATTEND Internal Medicine Endocrinology, Diabetes & Metabolism
DX: E55.9 Vitamin D deficiency, unspecified (principal); E10.9 Type 1 diabetes mellitus without complications